=== PATIENT | female | born 1970 | race Caucasian/White ===

== ENCOUNTER → 2019-07-12 17:35 | Outpatient (CLI) | payer OTHER, SELFPAY ==
--- NOTE | 2019-07-12 | DI.RAD.S_ITS ---
PROCEDURE: XR HIP W PEL IF DONE LT 2V INDICATIONS: L Anterior iliac crest pain to the touch TECHNIQUE: AP pelvis with lateral view(s) of the left hip(s). COMPARISON: None. FINDINGS: Bones: No fractures or dislocations. Pelvic ring appears intact. No suspicious bony lesions. Soft tissues: The visualized bowel gas pattern is normal. No suspicious soft tissue calcifications. IMPRESSION: Normal for age, source of current pain symptoms is not seen. Dictated by: Wilbur Crawford M.D. on 07/13/2019 at 9:09 Approved by: Wilbur Crawford M.D. on 07/13/2019 at 9:10
== END ==
PROVIDERS: Referring Provider Physician Assistant; Visit Provider Physician Assistant
DX: M25.552 Pain in left hip (principal)
CPT/HCPCS: 73502

== ENCOUNTER 2021-11-26 20:45 | Emergency (ER) | payer OTHER, SELFPAY ==
[2021-11-26 20:55] VITALS: BP 119/67; PULSE 63; RESP 18; TEMP 36.1; O2SAT 100; BMI 25.0
--- NOTE | 2021-11-26 21:23 | DI.RAD.S_ITS ---
PROCEDURE: XR CHEST 1V INDICATIONS: chest pain TECHNIQUE: One view of the chest was acquired. COMPARISON: None. FINDINGS: Surgical changes and devices: None. Lungs and pleura: Lungs are clear. No pleural effusions or pneumothorax. Mediastinum: Mediastinal contours appear normal. Heart size is normal. Bones and chest wall: No suspicious bony lesions. Overlying soft tissues appear unremarkable. IMPRESSION: 1. No acute cardiopulmonary disease. Dictated by: Ran Rasmussen M.D. on 11/26/2021 at 22:57 Approved by: Ran Rasmussen M.D. on 11/26/2021 at 22:57
--- NOTE | 2021-11-26 22:00 | PC.NURSE ---
c/o dizziness after eating with n/v
[2021-11-26 22:05] LABS: Add Manual Diff / Slide Review NO; Basophils Absolute Auto 0 /uL (0-100); Basophils Percent Auto 0.5 % (0-2); Eosinophils Absolute Auto 100 /uL (0-450); Eosinophils Percent Auto 1.9 % (2-4); Hematocrit 44.1 % (36-46); Hemoglobin 15.1 g/dL (12.0-16.0); Lymphocytes Absolute Auto 1400 /uL (1100-4500); Lymphocytes Percent Auto 18.6 % (25-40); Mean Corpuscular HGB Conc 34.2 % (30-36); Mean Corpuscular Hemoglobin 30.8 PG (26-34); Mean Corpuscular Volume 90.2 fL (80-100); Monocytes Absolute Auto 400 /uL (0-900); Monocytes Percent Auto 5.3 % (3-14); Neutrophils Absolute Auto 5400 /uL (1500-7000); Neutrophils Percent Auto 73.7 % (50-75); Platelet Count 139 X10^3/uL (150-400); Red Blood Cell Count 4.89 X10^6/uL (4.0-5.2); Red Cell Distribution Width 13.4 % (11.6-14.8); White Blood Cell Count 7.3 X10^3/uL (4.5-11.0)
[2021-11-26 22:12] LABS: Alanine Aminotransferase 22 IU/L (<35); Albumin 4.9 g/dL (3.5-5.0); Albumin Globulin Ratio 1.7 (1.0-2.8); Alkaline Phosphatase 71 U/L (38-126); Aspartate Aminotransferase 30 IU/L (14-36); BUN Creatinine Ratio 29.1 (6-22); Bilirubin Total 0.5 mg/dL (0.2-1.3); Blood Urea Nitrogen 23 mg/dL (7-17); Calcium 9.6 mg/dL (8.4-10.2); Carbon Dioxide 30 mmol/L (22-32); Chloride 101 mmol/L (98-107); Creatine Kinase 83 U/L (30-135); Estimated Glomerular Filt Rate > 60 mL/min (>60); Globulin 2.9 g/dL (1.7-4.1); Glucose 116 mg/dL (70-100); HEMOLYSIS < 15 (0-50); Lipase 168 U/L (23-300); Magnesium 2.1 mg/dL (1.6-2.3); Potassium 4.2 mmol/L (3.4-5.1); Sodium 139 mmol/L (137-145); Total Protein 7.8 g/dL (6.3-8.2)
[2021-11-26 22:23] LABS: Troponin I < 0.012 ng/mL (0.01-0.034)
[2021-11-26 23:01] LABS: COVID19 -Nasal RAPID Negative (Negative)
--- NOTE | 2021-11-27 00:40 | ED_ITS ---
HPI - General Adult General Chief complaint: Dizziness Stated complaint: dizzy after eating Time Seen by Provider: 11/27/21 00:40 Source: patient Mode of arrival: Ambulatory History of Present Illness HPI narrative: 51-year-old woman with menopausal symptoms and no other significant medical history presents with severe and sudden onset of dramatic vertigo. She states that she went to work without any difficulty today. She and her are getting their house ready for moving so she they done some loading into a truck, ate dinner and approximately an hour after dinner while sitting down she began to feel that she was somewhat over he did and then noticed that she was lightheaded and then became dramatically vertiginous. She describes it as ?being drunk in college within the room would not stop spinning?. She has had nothing to drink tonight. She describes no significant nausea however has had multiple episodes of vomiting due to the spinning. She has mild headache, no visual changes, describes no numbness or paresthesias, no cognitive deficits no speech or language abnormalities, no paresthesias or weakness in remainder of her body, no abdominal pain constipation. No recent upper respiratory infections fevers cough. She notes no visual changes. She states that the spinning sensation is better when she is sitting upright but not dramatically worse otherwise with positional changes. She has no obvious nystagmus appreciated. Related Data Previous Rx's Medication Instructions Recorded meclizine 25 mg tablet 25 mg PO QID PRN vertigo #30 tabs 11/27/21 Allergies Allergy/AdvReac Type Severity Reaction Status Date / Time No Known Drug Allergies Allergy Verified 11/27/21 03:33 Review of Systems Review of Systems Narrative: Remainder of complete review of systems is otherwise unremarkable except for that included in the HPI. Patient History Social History Smoking Status: Never smoker Smoking Status: Never smoker Substance Use Type: does not use Exam Initial Vital Signs Initial Vital Signs: Vital Signs Temperature 97.0 F L 11/26/21 20:55 Pulse Rate 63 11/26/21 20:55 Respiratory Rate 18 11/26/21 20:55 Blood Pressure 119/67 11/26/21 20:55 Pulse Oximetry 100 11/26/21 20:55 Oxygen Delivery Method 11/26/21 20:55 General: Healthy appearing, in no acute distress. Able to give a complete and coherent history. Well-nourished well-developed HEENT: Moist mucous membranes, normal sclera with reactive pupils, no nystagmus with provocative maneuvers. Tympanic membranes are pearly wilson. Neck: No JVD, supple Respiratory: Lungs are clear to auscultation, no wheezing no rales no rhonchi. Full and symmetrical air movement Cardiac: Regular rate and rhythm no murmurs no bruits Abdomen: Soft, nontender, good bowel tones, no flank pain Skin: Warm and dry, no rashes Neurologic: Grossly neurologically intact with no obvious asymmetries or abnor malities. Negative Romberg, she is able to do heel to toe walking but is slightly unsteady and able to appropriately corrected. Extremities: No trauma, well perfused Psych: Cooperative, appropriate insight and affect Course Orders Ordered: ED Orders 11/26/21 21:23 XR chest 1V Stat 11/26/21 21:54 COVID19 -Nasal RAPID/Pre-Proc Stat Complete Blood Count AUTO DIFF Stat Comprehensive Metabolic Panel Stat Lipase Stat Magnesium Stat Troponin & CK Cardiac Panel Stat 11/26/21 21:55 EKG-12 Lead Stat 11/27/21 00:56 CT head/brain wo con Stat Discontinued Medications Sodium Chloride (Normal Saline 0.9%) 1,000 mls @ 1,000 mls/hr IV BOLUS ONE Stop: 11/27/21 01:55 Last Infusion: 11/27/21 02:51 Dose: 0 mls/hr Documented By: Admin: 11/27/21 01:15 Dose: 1,000 mls/hr Documented By: NEDA Ketorolac Tromethamine (Ketorolac 30 Mg/Ml Vial) 15 mg IV NOW ONE Stop: 11/27/21 00:57 Last Admin: 11/27/21 01:16 Dose: 15 mg Documented By: NEDA Ondansetron HCl (Ondansetron 4 Mg/2 Ml Inj) 4 mg IV NOW ONE Stop: 11/27/21 00:57 Last Admin: 11/27/21 01:16 Dose: 4 mg Documented By: AP Vital Signs Vital signs: Vital Signs - 8 hr 11/26/21 20:55 11/27/21 01:25 Temperature 97.0 F L Pulse Rate 63 50 L Respiratory Rate 18 16 Blood Pressure 119/67 116/53 L Pulse Oximetry 100 99 Oxygen Delivery Method Room Air Room Air Medical Decision Making Lab Data Result diagrams: 11/26/21 21:54 11/26/21 21:54 Labs: Lab Results 11/26/21 11/26/21 11/26/21 Range/Units 21:54 21:54 21:54 WBC 7.3 (4.5-11.0) X10^3/uL RBC 4.89 (4.0-5.2) X10^6/uL Hgb 15.1 (12.0-16.0) g/dL Hct 44.1 (36-46) % MCV 90.2 (80-100) fL MCH 30.8 (26-34) PG MCHC 34.2 (30-36) % RDW 13.4 (11.6-14.8) % Plt Count 139 L (150-400) X10^3/uL Neut % (Auto) 73.7 (50-75) % Lymph % (Auto) 18.6 L (25-40) % Daniels % (Auto) 5.3 (3-14) % Eos % (Auto) 1.9 L (2-4) % Baso % (Auto) 0.5 (0-2) % Neut # (Auto) 5400 (1181-2738) /uL Lymph # (Auto) 1400 (1876-9958) /uL Daniels # (Auto) 400 (0-900) /uL Eos # (Auto) 100 (0-450) /uL Baso # (Auto) 0 (0-100) /uL Sodium 139 (137-145) mmol/L Potassium 4.2 (3.4-5.1) mmol/L Chloride 101 (98-107) mmol/L Carbon Dioxide 30 (22-32) mmol/L BUN 23 H (7-17) mg/dL Creatinine 0.79 (0.52-1.04) mg/dL Estimated GFR > 60 (>60) mL/min BUN/Creatinine Ratio 29.1 H (6-22) Glucose 116 H (70-100) mg/dL Calcium 9.6 (8.4-10.2) mg/dL Magnesium 2.1 (1.6-2.3) mg/dL Total Bilirubin 0.5 (0.2-1.3) mg/dL AST 30 (14-36) IU/L ALT 22 (<35) IU/L Alkaline Phosphatase 71 (38-126) U/L Total Creatine Kinase 83 (30-135) U/L CK-MB (CK-2) TNP CK-MB (CK-2) Rel Index TNP Troponin I < 0.012 (0.01-0.034) ng/mL Total Protein 7.8 (6.3-8.2) g/dL Albumin 4.9 (3.5-5.0) g/dL Globulin 2.9 (1.7-4.1) g/dL Albumin/Globulin Ratio 1.7 (1.0-2.8) Lipase 168 (23-300) U/L SARS-CoV-2 (PCR) Negative (Negative) Imaging Data CT scan - head: Radiologist's Impression: FINDINGS:? Image quality:? Excellent.? ? CSF spaces:? Basal cisterns are patent.? No extra-axial fluid collections.? Ventricles are normal in size and shape.? ? Brain:? No intracranial hemorrhage, mass, or mass effect.? Wilson-white matter interface appears preserved.? ? Skull and face:? Calvarium and visualized facial bones are intact, without suspicious lesions.? ? Sinuses:? Visualized sinuses and mastoids are clear.? ? IMPRESSION:? ? 1. No acute intracranial abnormality.? ? Dictated by: Ran Rasmussen M.D. on 11/27/2021 at 1:26 ? ? [facility] Narrative Medical decision making narrative: 51-year-old woman with acute onset severe vertigo uncertain etiology. No evidence of infection, do not suspect labyrinthitis, no CT obvious abno rmalities/bleeding/masses. Symptoms are continuing to improve and are better after some fluid. At this point the possibility of a basilar artery type stroke remains within the differential but seems less likely. She does not have benign positional vertigo and does not have positional vertigo, at this time I am less suspicious of this tubular neuritis or other neurologic findings. She has no ny stagmus associated with any of her symptoms. She will be discharged home with Zofran to help with nausea and a trial of meclizine to see if this helps with the vertigo. Will ask her to return if symptoms persist or she develops new findings. Should she have recurrent or persistent findings, the next step would be an MRI of the brain. Discharge Plan Departure Patient Disposition: Home Clinical Impression: Vertigo Instructions: DI for Vertigo Activity Restrictions/Additional Instructions: Thank you for coming in today I did not find any life-threatening explanation for the acute vertigo that you have experienced this evening. Frequently, we do not have a firm diagnosis and the symptoms do resolve spontaneously. Possibilities that I consider that you do not have include bleeding into your brain, brain tumor, obvious inner ear tumor and no signs of infection such as meningitis. Possibilities continue to include inner ear viral syndrome such as a labyrinthitis or inflammation of the 8th cranial nerve, this is called vestibular neuritis. Each of these syndromes is self-limited. Meclizine may be helpful in controlling the vertigo and is is worth trying. If it is not providing relief of symptoms, do not continue taking it If you find that symptoms worsen or your developing new issues, the next step in your workup would be an MRI of your brain. A prescription for meclizine was electronically transmitted to [facility] in [place]. Prescriptions: New meclizine 25 mg tablet 25 mg PO QID PRN (Reason: vertigo) Qty: 30 0RF
--- NOTE | 2021-11-27 00:56 | DI.CT.S_ITS ---
PROCEDURE: CT HEAD/BRAIN WO CON INDICATIONS: acute vertigo TECHNIQUE: Noncontrast 4.5 mm thick angled axial sections acquired from the foramen magnum to the vertex, with coronal and sagittal reformats. For radiation dose reduction, the following was used: automated exposure control, adjustment of mA and/or kV according to patient size. COMPARISON: None. FINDINGS: Image quality: Excellent. CSF spaces: Basal cisterns are patent. No extra-axial fluid collections. Ventricles are normal in size and shape. Brain: No intracranial hemorrhage, mass, or mass effect. Wilson-white matter interface appears preserved. Skull and face: Calvarium and visualized facial bones are intact, without suspicious lesions. Sinuses: Visualized sinuses and mastoids are clear. IMPRESSION: 1. No acute intracranial abnormality. Dictated by: Ran Rasmussen M.D. on 11/27/2021 at 1:26 Approved by: Ran Rasmussen M.D. on 11/27/2021 at 1:27
[2021-11-27] MEDS: SODIUM CHLORIDE 0.9% 1,000 ML 1000 ML IV (01:15)
[2021-11-27] MEDS: ONDANSETRON 4 MG/2 ML INJ IV (01:16)
[2021-11-27] MEDS: KETOROLAC 30 MG/ML VIAL 15 MG IV (01:16)
[2021-11-27 01:25] VITALS: BP 116/53; PULSE 50; RESP 16; O2SAT 99
[2021-11-27] MEDS: MECLIZINE HCL 12.5 MG TABLET 25 MG PO (03:23)
== END 2021-11-27 03:40 | disposition home or self-care (01) ==
PROVIDERS: Emergency Provider Emergency Medicine
DX: R42 Dizziness and giddiness (principal); Z20.822 Contact with and (suspected) exposure to COVID-19
CPT/HCPCS: 36415; 70450; 71045; 80053; 82550; 83690; 83735; 84484; 85025; 87635; 93005; 93010; 96361; 96374; 96375; 99284; 99285; C9803; J1885; J2405

== ENCOUNTER 2023-10-21 10:33 | Emergency (ER) | payer OTHER, SELFPAY ==
[2023-10-21 10:34] VITALS: BP 135/81; PULSE 88; RESP 14; TEMP 36.7; O2SAT 100; BMI 25.8
[2023-10-21 13:03] LABS: Appearance Urine UA CLEAR; Bilirubin Urine UA NEGATIVE (NEGATIVE); Color Urine UA YELLOW; Glucose Urine UA NEGATIVE (Negative); Ketones Urine UA NEGATIVE (NEGATIVE); Leukocyte Esterase Urine UA TRACE (NEGATIVE); Nitrite Urine UA NEGATIVE (Negative); Occult Blood Urine UA TRACE-INTACT (Negative); Protein Urine UA NEGATIVE (Negative); Urobilinogen Urine UA 0.2 E.U./dL (0.2)
[2023-10-21 13:22] LABS: Bacteria Urine None Seen; Culture Indicated Urine Specimen Cultured; RBC Urine 0-1/HPF (0-5/HPF); Squamous Epithelial Cell Urine 0-1 /HPF (0-5/HPF); Urine Volume 10mL (spun); WBC Urine 0-1/HPF (0-5/HPF)
--- NOTE | 2023-10-21 13:43 | ED_ITS ---
HPI - Headache <Raymond August PA-C - Last Filed: 10/21/23 15:29> General Chief Complaint: Headache Stated Complaint: blurry vison headache Time Seen by Provider: 10/21/23 12:55 Mode of arrival: Ambulatory History of Present Illness HPI Narrative: This is a 53-year-old female presents emergency department due to intermittent headaches with episodes of blurred vision for the last 6 months. States that the headaches happened about once a week sometimes frontal but sometimes extending down the back of her head. States that she gets occasional blurred vision where she states that she feels like she has been straining her eyes too much had a computer in his take a break and blink her eyes to restore it. Denies any nausea, vomiting, slurred speech, facial drooping, extremity weakness, or any other concerning signs or symptoms. Related Data Previous Rx's Medication Instructions Recorded meclizine 25 mg tablet 25 mg PO QID PRN vertigo #30 tabs 11/27/21 Allergies Allergy/AdvReac Type Severity Reaction Status Date / Time No Known Drug Allergies Allergy Verified 10/21/23 10:41 Review of Systems <Raymond August PA-C - Last Filed: 10/21/23 15:29> Review of Systems Narrative: GENERAL: Denies chills, fatigue, malaise, fever, sweats. HEENT: Denies sinus pain, ear pain, sore throat, difficulty swallowing, dizziness. RESPIRATORY: Denies dyspnea, cough, wheezing, hemoptysis, sputum. CARDIOVASCULAR: Denies chest pain, palpitations, orthopnea, edema, GASTROINTESTINAL: Denies nausea, vomiting, abdominal pain, diarrhea, constipation, melena. : Denies dysuria, frequency, incontinence, hematuria, urinary retention. MUSCULOSKELETAL: denies weakness, joint pain, or bony pain SKIN: Denies rash, skin lesions, or other NEUROLOGIC: Reports intermittent episodes of headaches and blurred vision Denies weakness, headache, numbness, change in speech, confusion, seizures, incoordination. PSYCHIATRIC: No concerning psychosocial issues. 12 point review of systems is negative except for those stated above Patient History <Raymond August PA-C - Last Filed: 10/21/23 15:29> Social History Smoking Status: Never smoker Smoking Status: Never smoker alcohol intake frequency: a few times a month Substance Use Type: does not use Exam <LAKIA Mayberry Last Filed: 10/21/23 15:29> Narrative Exam Narrative: GENERAL: Well-developed patient, in mild distress. HEAD: Atraumatic. Normocephalic. EYES: Pupils equal round and reactive. Extraocular motions intact. No scleral icterus. No injection or drainage. ENT: Nose without bleeding, purulent drainage. Throat without erythema, tonsillar hypertrophy or exudate. Airway patent. NECK: Trachea midline. Non tender EXTREMITIES: No edema or joint tenderness. NEURO: AOx3. Cranial nerves 2-12 intact SKIN: No rash or erythema of visible areas Initial Vital Signs Initial Vital Signs: Vital Signs Temperature 98.0 F 10/21/23 10:34 Pulse Rate 88 10/21/23 10:34 Respiratory Rate 14 10/21/23 10:34 Blood Pressure 135/81 10/21/23 10:34 Pulse Oximetry 100 10/21/23 10:34 Oxygen Delivery Method Room Air 10/21/23 10:34 <Ashley Gibbons DO - Last Filed: 10/21/23 18:49> Initial Vital Signs Initial Vital Signs: Vital Signs Temperature 98.0 F 10/21/23 10:34 Pulse Rate 88 10/21/23 10:34 Respiratory Rate 14 10/21/23 10:34 Blood Pressure 135/81 10/21/23 10:34 Pulse Oximetry 100 10/21/23 10:34 Oxygen Delivery Method Room Air 10/21/23 10:34 Course <Raymond August PA-C - Last Filed: 10/21/23 15:29> Orders Ordered: ED Orders 10/21/23 10:44 Complete Blood Count AUTO DIFF Stat Comprehensive Metabolic Panel Stat 10/21/23 12:52 Urinalysis and Microscopic Stat Urine Culture Stat 10/21/23 13:54 CT head/brain wo con Stat Vital Signs Vital signs: Vital Signs - 8 hr 10/21/23 15:40 Temperature 98.2 F Pulse Rate 82 Respiratory Rate 18 Blood Pressure 132/76 Pulse Oximetry 99 Oxygen Delivery Method Room Air <Ashley Gibbons DO - Last Filed: 10/21/23 18:49> Orders Ordered: ED Orders 10/21/23 10:44 Complete Blood Count AUTO DIFF Stat Comprehensive Metabolic Panel Stat 10/21/23 12:52 Urinalysis and Microscopic Stat Urine Culture Stat 10/21/23 13:54 CT head/brain wo con Stat Vital Signs Vital signs: Vital Signs - 8 hr 10/21/23 15:40 Temperature 98.2 F Pulse Rate 82 Respiratory Rate 18 Blood Pressure 132/76 Pulse Oximetry 99 Oxygen Delivery Method Room Air MDM - Headache <Raymond August PA-C - Last Filed: 10/21/23 15:29> Lab Data 10/21/23 10:44 10/21/23 10:44 Labs: Lab Results 10/21/23 10/21/23 Range/Units 10:44 12:52 WBC 4.7 (4.5-11.0) X10^3/uL RBC 5.03 (4.0-5.2) X10^6/uL Hgb 15.2 (12.0-16.0) g/dL Hct 45.6 (36-46) % MCV 90.6 (80-100) fL MCH 30.3 (26-34) PG MCHC 33.4 (30-36) % RDW 13.3 (11.6-14.8) % Plt Count 146 L (150-400) X10^3/uL Neut % (Auto) 61.3 (50-75) % Lymph % (Auto) 25.7 (25-40) % Taliaferro % (Auto) 8.0 (3-14) % Eos % (Auto) 4.4 H (2-4) % Baso % (Auto) 0.6 (0-2) % Neut # (Auto) 2900 (1847-9803) /uL Lymph # (Auto) 1200 (5750-0332) /uL Taliaferro # (Auto) 400 (0-900) /uL Eos # (Auto) 200 (0-450) /uL Baso # (Auto) 0 (0-100) /uL Sodium 141 (137-145) mmol/L Potassium 4.0 (3.4-5.1) mmol/L Chloride 107 (98-107) mmol/L Carbon Dioxide 27 (22-32) mmol/L BUN 17 (7-17) mg/dL Creatinine 0.81 (0.52-1.04) mg/dL Estimated GFR > 60 (>60) mL/min BUN/Creatinine Ratio 21.0 (6-22) Glucose 103 H (70-100) mg/dL Calcium 9.6 (8.4-10.2) mg/dL Total Bilirubin 0.5 (0.2-1.3) mg/dL AST 29 (14-36) IU/L ALT 20 (<35) IU/L Alkaline Phosphatase 60 (38-126) U/L Total Protein 7.4 (6.3-8.2) g/dL Albumin 4.9 (3.5-5.0) g/dL Globulin 2.5 (1.7-4.1) g/dL Albumin/Globulin Ratio 2.0 (1.0-2.8) Urine Color Yellow Urine Appearance Clear Urine pH 7.0 (4.5-8.0) Ur Specific [place] 1.010 (1.000-1.035) Urine Protein Negative (Negative) Urine Glucose (UA) Negative (Negative) g/dL Urine Ketones Negative (NEGATIVE) Urine Occult Blood Trace-intact (Negative) Urine Nitrate Negative (Negative) Urine Bilirubin Negative (NEGATIVE) Urine Urobilinogen 0.2 (0.2) E.U./dL Ur Leukocyte Esterase Trace H (NEGATIVE) Urine RBC 0-1/hpf (0-5/HPF) Urine WBC 0-1/hpf (0-5/HPF) Ur Squamous Epith Cells 0-1 /hpf (0-5/HPF) Urine Bacteria None seen (None) Ur Culture Indicated? Specimen cultured Vol Urine Centrifuged 10ml (spun) Imaging Data CT scan - head: Radiologist's Impression: [address] [address] [address] Scan Report Signed Patient: Jennifer Heath MR#: [id number] : 1970 Acct:[id number] Age/Sex: 53 / F Date of Service: 10/21/23 Loc: ED Accession Number: [id number] Procedure: CT head/brain wo con Ordering Provider: Raymond August P.A-C PROCEDURE: CT HEAD/BRAIN WO CON INDICATIONS: Intermittend BRIGGS and vision changes x 6 months TECHNIQUE: Noncontrast 4.5 mm thick angled axial sections acquired from the foramen magnum to the vertex, with coronal and sagittal reformats. For radiation dose reduction, the following was used: automated exposure control, adjustment of mA and/or kV according to patient size. COMPARISON: [facility], CT, CT HEAD/BRAIN WO CON, 11/27/2021, 1:02. FINDINGS: Image quality: Diagnostic. CSF spaces: Basal cisterns are patent. No extra-axial fluid collections. Ventricles are normal in size and shape. Brain: No midline shift. No intracranial masses or hemorrhage. Wilson-white matter interface is normal. Skull and face: Calvarium and visualized facial bones are intact, without suspicious lesions. Sinuses: Visualized sinuses and mastoids are clear. IMPRESSION: No acute intracranial pathology. Dictated by: Makenzie Mayer M.D. on 10/21/2023 at 14:35 Approved by: Makenzie Mayer M.D. on 10/21/2023 at 14:36 MDM Narrative Medical decision making narrative: ED course: This is a 53-year-old female presents to the emergency department due to suspected migraines with a mild aura involving visual changes. She states that they are intermittent about roughly 1 every week for the last 6 months. She was scan to evaluate for brain bleed. CT scan was negative for any abnormalities. Lab work also unremarkable. Patient was not having any headache symptoms currently. Recommend she follow up with her primary care provider for outpatient workup if symptoms continue. Recommended ibuprofen, Tylenol, or Excedrin for headaches. Neuro exam unremarkable. CC: Headaches Complicating co-morbidities: History of vertigo Data collected from: Previous notes Medical records reviewed: Patient was seen 2 years ago due to dizziness after eating. History of menopause. No other significant medical history. No other deficits noted just described the room being spinning. CT was unremarkable. Patient was eventually discharged with meclizine. Differential considered, but not limited to: Intracranial bleed, ischemic stroke, TIA, migraine Exam documented above, pertinent findings include: Cranial nerves 2-12 intact. Lab Test results independently reviewed as above. Pertinent findings: CBC and CMP unremarkable Imaging studies independently reviewed: CT head unremarkable Scores Used: None MIPS Elements: None Consultations: None Treatments: None Re-evaluations: None Discussion: Discussed plan with the patient was comfortable with the plan Diagnosis: Migraine with aura Disposition: see below, along with detailed discharge instructions that have been reviewed with patient as well as indications for ED re-evaluation and additional outpatient follow up <Ashley Gibbons DO - Last Filed: 10/21/23 18:49> Lab Data Labs: Lab Results 10/21/23 10/21/23 Range/Units 10:44 12:52 WBC 4.7 (4.5-11.0) X10^3/uL RBC 5.03 (4.0-5.2) X10^6/uL Hgb 15.2 (12.0-16.0) g/dL Hct 45.6 (36-46) % MCV 90.6 (80-100) fL MCH 30.3 (26-34) PG MCHC 33.4 (30-36) % RDW 13.3 (11.6-14.8) % Plt Count 146 L (150-400) X10^3/uL Neut % (Auto) 61.3 (50-75) % Lymph % (Auto) 25.7 (25-40) % Taliaferro % (Auto) 8.0 (3-14) % Eos % (Auto) 4.4 H (2-4) % Baso % (Auto) 0.6 (0-2) % Neut # (Auto) 2900 (4137-6248) /uL Lymph # (Auto) 1200 (1951-9999) /uL Tal[place]ferro # (Auto) 400 (0-900) /uL Eos # (Auto) 200 (0-450) /uL Baso # (Auto) 0 (0-100) /uL Sodium 141 (137-145) mmol/L Potassium 4.0 (3.4-5.1) mmol/L Chloride 107 (98-107) mmol/L Carbon Dioxide 27 (22-32) mmol/L BUN 17 (7-17) mg/dL Creatinine 0.81 (0.52-1.04) mg/dL Estimated GFR > 60 (>60) mL/min BUN/Creatinine Ratio 21.0 (6-22) Glucose 103 H (70-100) mg/dL Calcium 9.6 (8.4-10.2) mg/dL Total Bilirubin 0.5 (0.2-1.3) mg/dL AST 29 (14-36) IU/L ALT 20 (<35) IU/L Alkaline Phosphatase 60 (38-126) U/L Total Protein 7.4 (6.3-8.2) g/dL Albumin 4.9 (3.5-5.0) g/dL Globulin 2.5 (1.7-4.1) g/dL Albumin/Globulin Ratio 2.0 (1.0-2.8) Urine Color Yellow Urine Appearance Clear Urine pH 7.0 (4.5-8.0) Ur Specific [place] 1.010 (1.000-1.035) Urine Protein Negative (Negative) Urine Glucose (UA) Negative (Negative) g/dL Urine Ketones Negative (NEGATIVE) Urine Occult Blood Trace-intact (Negative) Urine Nitrate Negative (Negative) Urine Bilirubin Negative (NEGATIVE) Urine Urobilinogen 0.2 (0.2) E.U./dL Ur Leukocyte Esterase Trace H (NEGATIVE) Urine RBC 0-1/hpf (0-5/HPF) Urine WBC 0-1/hpf (0-5/HPF) Ur Squamous Epith Cells 0-1 /hpf (0-5/HPF) Urine Bacteria None seen (None) Ur Culture Indicated? Specimen cultured Vol Urine Centrifuged 10ml (spun) Discharge Plan Departure Patient Disposition: Home Clinical Impression: Migraine Instructions: DI for Migraine Activity Restrictions/Additional Instructions: Thank you for coming to the [facility] Emergency Department today. As we discussed your CT head showed no evidence of any kind of intracranial bleed or other brain abnormality. Lab work was unremarkable as well and showed no evidence of infection or electrolyte abnormalities. I suspect you what you are having something called a migraine with aura. You may follow up with the primary care provider for further workup regarding this. I do recommend Excedrin as needed for any migraines. Please return to the emergency department if you develop any slurred speech, facial drooping, extremity weakness, or any other concerning signs or symptoms. I hope you feel better soon. Please follow up with your primary care provider within a week if your symptoms continue. If you do not have a primary care provider please contact the [facility] Resource line at [phone]. They will ask some questions about your medical history and help you get set up with a provider in the community. Prescriptions: No Action meclizine 25 mg tablet 25 mg PO QID PRN (Reason: vertigo) Qty: 30 0RF Referrals: Miscellaneous,[facility] [Primary Care Provider] - Stand Alone Forms: Patient Portal/API ED Sign-out <Ashley Gibbons DO - Last Filed: 10/21/23 18:49> Cosign ED Attending Cosignature Attestation: I was immediately available in the department for consultation.
--- NOTE | 2023-10-21 13:54 | DI.CT.S_ITS ---
PROCEDURE: CT HEAD/BRAIN WO CON INDICATIONS: Intermittend BRIGGS and vision changes x 6 months TECHNIQUE: Noncontrast 4.5 mm thick angled axial sections acquired from the foramen magnum to the vertex, with coronal and sagittal reformats. For radiation dose reduction, the following was used: automated exposure control, adjustment of mA and/or kV according to patient size. COMPARISON: [facility], CT, CT HEAD/BRAIN WO CON, 11/27/2021, 1:02. FINDINGS: Image quality: Diagnostic. CSF spaces: Basal cisterns are patent. No extra-axial fluid collections. Ventricles are normal in size and shape. Brain: No midline shift. No intracranial masses or hemorrhage. Wilson-white matter interface is normal. Skull and face: Calvarium and visualized facial bones are intact, without suspicious lesions. Sinuses: Visualized sinuses and mastoids are clear. IMPRESSION: No acute intracranial pathology. Dictated by: Makenzie Mayer M.D. on 10/21/2023 at 14:35 Approved by: Makenzie Mayer M.D. on 10/21/2023 at 14:36
[2023-10-21 14:22] LABS: Add Manual Diff / Slide Review NO; Basophils Absolute Auto 0 /uL (0-100); Basophils Percent Auto 0.6 % (0-2); Eosinophils Absolute Auto 200 /uL (0-450); Eosinophils Percent Auto 4.4 % (2-4); Hematocrit 45.6 % (36-46); Hemoglobin 15.2 g/dL (12.0-16.0); Lymphocytes Absolute Auto 1200 /uL (1100-4500); Lymphocytes Percent Auto 25.7 % (25-40); Mean Corpuscular HGB Conc 33.4 % (30-36); Mean Corpuscular Hemoglobin 30.3 PG (26-34); Mean Corpuscular Volume 90.6 fL (80-100); Monocytes Absolute Auto 400 /uL (0-900); Neutrophils Absolute Auto 2900 /uL (1500-7000); Neutrophils Percent Auto 61.3 % (50-75); Platelet Count 146 X10^3/uL (150-400); Red Blood Cell Count 5.03 X10^6/uL (4.0-5.2); Red Cell Distribution Width 13.3 % (11.6-14.8); White Blood Cell Count 4.7 X10^3/uL (4.5-11.0)
[2023-10-21 15:19] LABS: Alanine Aminotransferase 20 IU/L (<35); Albumin 4.9 g/dL (3.5-5.0); Alkaline Phosphatase 60 U/L (38-126); Aspartate Aminotransferase 29 IU/L (14-36); Bilirubin Total 0.5 mg/dL (0.2-1.3); Blood Urea Nitrogen 17 mg/dL (7-17); Calcium 9.6 mg/dL (8.4-10.2); Carbon Dioxide 27 mmol/L (22-32); Chloride 107 mmol/L (98-107); Estimated Glomerular Filt Rate > 60 mL/min (>60); Globulin 2.5 g/dL (1.7-4.1); Glucose 103 mg/dL (70-100); HEMOLYSIS < 15 (0-50); Sodium 141 mmol/L (137-145); Total Protein 7.4 g/dL (6.3-8.2)
[2023-10-21 15:40] VITALS: BP 132/76; PULSE 82; RESP 18; TEMP 36.8; O2SAT 99
== END 2023-10-21 15:40 | disposition home or self-care (01) ==
PROVIDERS: Emergency Provider Physician Assistant Medical
DX: G43.909 Migraine, unspecified, not intractable, without status migrainosus (principal); H53.8 Other visual disturbances
CPT/HCPCS: 70450; 80053; 81001; 85025; 87086; 99281; 99284